=== PATIENT | female | born 1955 | race Caucasian/White ===

== ENCOUNTER 2018-10-15 13:02 | Emergency (ER) | payer BC, MEDICARE ==
[~2018-10-15] VITALS: Ht 165.1 cm; Wt 75.3 kg
[~2018-10-15 13:02] MED LIST: ACET500C5 PO; AMLO-147 PO; ATEN50TA PO; CEPH-443 PO; CLOP75TA28 PO; LACT1CAP57 PO; MECL25TA2 PO; NITR-58 PO; TRAM50TA2 PO
[2018-10-15 13:44] VITALS: BP 175/89; PULSE 73; RESP 17; Ht 165.1 cm; Wt 75.3 kg
[2018-10-15] MEDS ORDERED: ACETAMINOPHEN 500 MG TAB PO STA (17:10)
== END 2018-10-15 17:36 | disposition home or self-care (01) ==
LOC: FTE 13:02
DX: M25.552 Pain in left hip (principal); N39.0 Urinary tract infection, site not specified; I10 Essential (primary) hypertension; F17.210 Nicotine dependence, cigarettes, uncomplicated; R93.0 Abnormal findings on diagnostic imaging of skull and head, not elsewhere classified; Z79.02 Long term (current) use of antithrombotics/antiplatelets; Z86.73 Personal history of transient ischemic attack (TIA), and cerebral infarction without residual deficits
CPT/HCPCS: 70450; 72192; 81001